=== PATIENT | male | born 1995 | race Caucasian/White ===

== ENCOUNTER 2023-01-21 13:14 | Emergency (ER) | payer OTHER, SELFPAY ==
[2023-01-21 13:17] VITALS: BP 137/99; RESP 16; TEMP 36.8; O2SAT 100
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
[2023-01-21 13:42] VITALS: BP 120/84; PULSE 71; RESP 16; TEMP 36.8; O2SAT 100
== END 2023-01-21 13:50 | disposition home or self-care (01) ==
PROVIDERS: Emergency Provider Emergency Medicine; PCP Physician Assistant
DX: R41.9 Unspecified symptoms and signs involving cognitive functions and awareness (principal); V89.2XXA Person injured in unspecified motor-vehicle accident, traffic, initial encounter
CPT/HCPCS: 99282